=== PATIENT | female | born 1995 | race Caucasian/White ===

== ENCOUNTER 2017-11-21 14:26 | Outpatient (CLI) | payer OTHER, MEDICAID, SELFPAY ==
[2017-11-21 15:22] LABS: Bacteria Urine None Seen; RBC Urine None Seen (0-5/HPF); WBC Urine None Seen (0-5/HPF)
[2017-11-21 15:26] LABS: Appearance Urine UA CLEAR; Bilirubin Urine UA NEGATIVE (NEGATIVE); Color Urine UA YELLOW; Glucose Urine UA NEGATIVE (Negative); Ketones Urine UA NEGATIVE (NEGATIVE); Leukocyte Esterase Urine UA NEGATIVE (NEGATIVE); Nitrite Urine UA Negative (Negative); Occult Blood Urine UA NEGATIVE (Negative); Protein Urine UA NEGATIVE (Negative); Specific Gravity Urine UA <=1.005 (1.000-1.035); Urobilinogen Urine UA 0.2 E.U./dL (0.2)
[2017-11-21 16:15] LABS: Culture Indicated Urine Cult Not Indicated; Urine Comments Microscopic Normal
[2017-11-22 16:38] LABS: Strep Grp B PCR NEG for Grp B Strep
== END 2017-11-21 16:19 | disposition home or self-care (01) ==
LOC: LABOR 15:26 → OB 11-22 09:25
PROVIDERS: Family Provider Obstetrics & Gynecology; Visit Provider Obstetrics & Gynecology
DX: Z34.03 Encounter for supervision of normal first pregnancy, third trimester (principal); Z3A.35 35 weeks gestation of pregnancy
CPT/HCPCS: 59025; 59050; 81001; 87653; G0378; G0379

== ENCOUNTER 2017-12-02 19:43 | Outpatient (CLI) | payer OTHER, MEDICAID, SELFPAY ==
--- NOTE | 2017-12-03 13:00 | PM.OBTRLD ---
Visit Information Visit Information Date of evaluation: 12/02/17 Primary OB Provider: Alana Rodas On-call OB Provider: Alana Rodas Reason for Evaluation: Yes rule out labor Evaluation Evaluation Baseline heart rate: 125 Variability: Moderate (11-25) monitor accelerations: Present monitor decelerations: Absent Contraction Frequency (minutes): 12 Uterine Contraction Intensity: Mild Category of Tracing: I Cervical dilation (cm): 2 Cervical effacement (%): 80 station: -1 Diagnosis, Plan/Disposition Final Diagnosis (1) 38 weeks gestation of : Current Visit: No Status: Acute Plan/Disposition Plan: Assessment: 22-year-old 1 para 0 at 38 weeks gestation not in labor Plan: Discharged to home Signs and symptoms of labor reviewed Follow-up as scheduled for routine appointment this week
== END 2017-12-02 21:00 | disposition home or self-care (01) ==
LOC: OB 12-04 14:06
PROVIDERS: Family Provider Obstetrics & Gynecology; Visit Provider Obstetrics & Gynecology
DX: Z34.03 Encounter for supervision of normal first pregnancy, third trimester (principal); Z3A.37 37 weeks gestation of pregnancy
CPT/HCPCS: 59025; G0378; G0379

== ENCOUNTER 2017-12-08 03:49 | Outpatient (CLI) | payer OTHER, MEDICAID, SELFPAY | END 2017-12-08 05:50 | disposition home or self-care (01) | LOC: LABOR 05:26 → OB 12-12 14:08 | PROVIDERS: Family Provider Obstetrics & Gynecology | DX: Z34.03 Encounter for supervision of normal first pregnancy, third trimester (principal); Z3A.38 38 weeks gestation of pregnancy | CPT/HCPCS: 59025; 59050; 84112; G0378; G0379 ==

== ENCOUNTER 2017-12-12 06:01 | Inpatient (IN) | payer OTHER, MEDICAID, SELFPAY ==
[2017-12-12 06:41] LABS: Add Manual Diff / Slide Review NO; Basophils Percent Auto 0.8 % (0-2); Eosinophils Percent Auto 1.5 % (2-4); Hematocrit 36.2 % (36-46); Hemoglobin 12.5 g/dL (12.0-16.0); Lymphocytes Percent Auto 27.5 % (25-40); Mean Corpuscular HGB Conc 34.6 % (30-36); Mean Corpuscular Hemoglobin 31.6 PG (26-34); Mean Corpuscular Volume 91.3 fL (80-100); Monocytes Percent Auto 6.9 % (3-14); Neutrophils Absolute Auto 6400 /uL (3000-5900); Neutrophils Percent Auto 63.3 % (50-75); Platelet Count 305 X10^3/uL (150-400); Red Blood Cell Count 3.97 X10^6/uL (4.0-5.2); Red Cell Distribution Width 13.5 % (11.6-14.8); White Blood Cell Count 10.2 X10^3/uL (4.5-11.0)
[2017-12-12 07:01] VITALS: BP 170/88
[2017-12-12] MEDS: IBUPROFEN 600 MG TABLET PO ×2 (15:42→23:59)
[2017-12-12] MEDS: ACETAMINOPHEN 325 MG TABLET 650 MG PO (17:45)
[2017-12-12] MEDS: DERMOPLAST SPRAY 20% 60 ML 1 SPRAY TOP (18:01)
[2017-12-12] MEDS: LABETALOL 100 MG TABLET PO (21:54)
[2017-12-12 23:59] VITALS: TEMP 36.7
[2017-12-13 05:25] LABS: Hematocrit 31.5 % (36-46); Hemoglobin 10.9 g/dL (12.0-16.0)
[2017-12-13 09:24] VITALS: BP 105/72; PULSE 78
[2017-12-13] MEDS: PRENATAL VIT,CALC/IRON/FOLIC 1 TABLET 1 TAB PO (09:24)
[2017-12-13] MEDS: LABETALOL 100 MG TABLET PO (09:24)
[2017-12-13] MEDS: IBUPROFEN 600 MG TABLET PO (09:26)
[2017-12-13 13:55] VITALS: BP 132/87; PULSE 67; TEMP 37.2
== END 2017-12-13 15:00 | disposition home or self-care (01) | DRG 775 ==
PROVIDERS: Admitting Provider Obstetrics & Gynecology; Family Provider Obstetrics & Gynecology; Visit Provider Obstetrics & Gynecology
DX: O70.0 First degree perineal laceration during delivery (principal); Z3A.38 38 weeks gestation of pregnancy; Z37.0 Single live birth
CPT/HCPCS: 36415; 59050; 59410; 85014; 85018; 85025; 86850; 86900; 86901; G0379

== ENCOUNTER 2018-09-12 15:45 | Emergency (ER) | payer OTHER, MEDICAID, SELFPAY ==
[2018-09-12 16:08] VITALS: BP 100/66; PULSE 76; RESP 20; TEMP 36.9; O2SAT 100
== END 2018-09-12 18:17 | disposition left against medical advice (07) ==
PROVIDERS: Emergency Provider Emergency Medicine; Family Provider Obstetrics & Gynecology
CPT/HCPCS: 99281

== ENCOUNTER → 2018-10-25 14:21 | Outpatient (CLI) | payer OTHER, MEDICAID, SELFPAY ==
--- NOTE | 2018-10-25 14:23 | DI.US.S_ITS ---
PROCEDURE: US OB >= 14 WEEKS FETUS INDICATIONS: DATING AND VIABILITY OUTSIDE/PRIOR DATING DATA: Last menstrual period (LMP): Unknown. LMP-based estimated date of delivery (TRINO): Unknown. First dating scan (date and location): 10/25/18. Estimated date of delivery (TRINO) from first dating scan: 04/08/19. TECHNIQUE: Real-time scanning was performed of the fetus, with image documentation and biometric measurements. Endovaginal scanning: Performed COMPARISON: None. FINDINGS: General: A single living intrauterine gestation is present. Presentation: Vertex. Placenta: Placental position is anterior and. Low-lying placenta Amniotic fluid index: Subjectively normal heart rate: 149 beats per minute. Maternal cervical canal: 3.7 cm long. Normal lower limit is 2.5 cm. biometrics: Biparietal diameter: 3.4 cm, 16 weeks 3 days Head circumference: 13.1 cm, 16 weeks 5 days Abdominal circumference: 11.0 cm, 16 weeks 6 days Femur length: 1.8 cm, 15 weeks 3 days Estimated gestational age from initial scan: not applicable. Composite gestational age from present scan: 16 weeks 3 days Estimated weight and percentile: 129 g Measurement variability for biometric dating: +/- 7 days from 14 weeks to 15 weeks 6 days gestation, +/- 10 days from 16 weeks to 21 weeks 6 days gestation, +/- 2 weeks from 22 weeks to 27 weeks 6 days gestation, +/- 3 weeks for 28 weeks gestation or later. weight reference: 4500 g or EFW >90/95% is considered macrosomia or large for gestational age. EFW <10% is small for gestational age. EFW 5% or less is considered intra-uterine growth restriction. Incidental uterine contraction the visualized during examination. IMPRESSION: Single living intrauterine fetus in vertex presentation with gestational age of 16 weeks and 3 days by today's ultrasound measurements. Low-lying placenta. Recommend followup. Dictated by: Mauricio Muniz M.D. on 10/25/2018 at 15:54 Approved by: Mauricio Muniz M.D. on 10/25/2018 at 16:01
== END ==
PROVIDERS: Family Provider Obstetrics & Gynecology; Visit Provider Obstetrics & Gynecology
DX: Z34.82 Encounter for supervision of other normal pregnancy, second trimester (principal); Z3A.16 16 weeks gestation of pregnancy
CPT/HCPCS: 36415; 76811; 80055; 81003; 86703; 86787; 86803; 86850; 86900; 86901; 87086

== ENCOUNTER → 2018-10-25 15:52 | Outpatient (CLI) | payer OTHER, MEDICAID, SELFPAY ==
[2018-10-25 16:25] LABS: Add Manual Diff / Slide Review NO; Basophils Absolute Auto 0 /uL (0-100); Basophils Percent Auto 0.4 % (0-2); Eosinophils Absolute Auto 100 /uL (0-450); Hematocrit 35.9 % (36-46); Hemoglobin 12.1 g/dL (12.0-16.0); Lymphocytes Absolute Auto 1800 /uL (1100-4500); Lymphocytes Percent Auto 26.7 % (25-40); Mean Corpuscular HGB Conc 33.7 % (30-36); Mean Corpuscular Hemoglobin 30.7 PG (26-34); Mean Corpuscular Volume 90.9 fL (80-100); Monocytes Absolute Auto 400 /uL (0-900); Monocytes Percent Auto 5.8 % (3-14); Neutrophils Absolute Auto 4600 /uL (1500-7000); Neutrophils Percent Auto 66.1 % (50-75); Platelet Count 296 X10^3/uL (150-400); Red Blood Cell Count 3.94 X10^6/uL (4.0-5.2); White Blood Cell Count 6.9 X10^3/uL (4.5-11.0)
[2018-10-25 16:36] LABS: Appearance Urine UA CLEAR; Bilirubin Urine UA NEGATIVE (NEGATIVE); Color Urine UA YELLOW; Glucose Urine UA NEGATIVE (Negative); Ketones Urine UA TRACE (NEGATIVE); Leukocyte Esterase Urine UA NEGATIVE (NEGATIVE); Nitrite Urine UA NEGATIVE (Negative); Occult Blood Urine UA NEGATIVE (Negative); Protein Urine UA NEGATIVE (Negative); Specific Gravity Urine UA <=1.005 (1.000-1.035); Urobilinogen Urine UA 0.2 E.U./dL (0.2)
[2018-10-25 18:10] LABS: Hepatitis B Surface Antigen NEGATIVE s/c (NEGATIVE)
[2018-10-25 18:19] LABS: HIV 1 and 2 Antibody NEGATIVE (NEGATIVE); Hep C Virus Ab w/Reflex Quant NEGATIVE s/c (NEGATIVE)
[2018-10-27 15:47] LABS: RPR Screen Nonreactive (Nonreactive)
== END ==
PROVIDERS: Family Provider Obstetrics & Gynecology; Visit Provider Obstetrics & Gynecology
DX: Z34.82 Encounter for supervision of other normal pregnancy, second trimester (principal)
CPT/HCPCS: 36415; 80055; 81003; 86703; 86787; 86803; 86850; 86900; 86901; 87086

== ENCOUNTER → 2018-11-08 15:58 | Outpatient (CLI) | payer OTHER, MEDICAID, SELFPAY ==
[2018-11-08 20:23] LABS: Urine N gonorrhoeae NOT DETECTED
[2018-11-08 20:26] LABS: Urine Chlamydia NOT DETECTED
[2018-11-13 15:14] LABS: AFP, Serum 80.1 ng/mL; Calc Gestational Age 18.4; Cigarette Smoker N; Donated Egg NOT GIVEN; Donor Egg Age NOT GIVEN; Estriol, Free 1.15 ng/mL; Inhibin A, Dimeric 150 pg/mL; Maternal Weight 111 lbs; Number of Fetuses NOT GIVEN; Previous Pregnancy Down Syndro NOT GIVEN; hCG, Serum 21.9 IU/mL
== END ==
PROVIDERS: Family Provider Obstetrics & Gynecology; Visit Provider Obstetrics & Gynecology
DX: Z34.82 Encounter for supervision of other normal pregnancy, second trimester (principal)
CPT/HCPCS: 36415; 82105; 82677; 84702; 86336; 87491; 87591

== ENCOUNTER → 2018-11-22 12:33 | Outpatient (CLI) | payer OTHER, MEDICAID, SELFPAY ==
--- NOTE | 2018-11-22 12:34 | DI.US.S_ITS ---
PROCEDURE: US OB >= 14 WEEKS FETUS INDICATIONS: ANATOMY OUTSIDE/PRIOR DATING DATA: Last menstrual period (LMP): Unknown. LMP-based estimated date of delivery (TRINO): N./A.. First dating scan (date and location): 10/25/18. Estimated date of delivery (TRINO) from first dating scan: 04/08/19. TECHNIQUE: Real-time scanning was performed of the fetus, with image documentation and biometric measurements. Endovaginal scanning: No COMPARISON: [facility], , OB >= 14 WEEKS FETUS, 11/08/2018, 15:44. FINDINGS: General: A single living intrauterine gestation is present. Presentation: Vertex. Placenta: Placental position is anterior, without previa. Amniotic fluid index: 15.0 cm, normal range is 5-24 cm. heart rate: 137 beats per minute. Maternal cervical canal: 3.1 cm long. Normal lower limit is 2.5 cm. biometrics: Biparietal diameter: 21 weeks 2 days Head circumference: 20 weeks 6 days Abdominal circumference: 20 weeks 4 days Femur length: 19 weeks 3 days Estimated gestational age from initial scan: 20 weeks 3 days Composite gestational age from present scan: 20 weeks 4 days Estimated weight and percentile: 336 g; 31st percentile Measurement variability for biometric dating: +/- 7 days from 14 weeks to 15 weeks 6 days gestation, +/- 10 days from 16 weeks to 21 weeks 6 days gestation, +/- 2 weeks from 22 weeks to 27 weeks 6 days gestation, +/- 3 weeks for 28 weeks gestation or later. weight reference: 4500 g or EFW >90/95% is considered macrosomia or large for gestational age. EFW <10% is small for gestational age. EFW 5% or less is considered intra-uterine growth restriction. Anatomic survey: Neuro: Ventricles are non-dilated at less than 10 mm. Cisterna magna is normal at 3-11 mm. Cerebellum is normal in size and morphology. Nuchal skin fold: Normal at less than 6 mm between 14-21 weeks gestational age. Face: Nose and lips, facial profile are normal. Spine: No evidence for spina bifida. Heart: 4-chambered heart is present, with normal ventricular outflow tracts. Diaphragm: Diaphragm is intact. Stomach: Left-sided stomach is present. Kidneys: No hydronephrosis. Normal is less than 5 mm in 2nd trimester, less than 7 mm in 3rd trimester. Cord: 3-vessel cord has orthotopic insertion. Bladder: Normal in size. Extremities: All 4 extremities identified. IMPRESSION: 1. Single living IUP redemonstrated and interval growth is normal. 2. Normal anatomic survey. Dictated by: Dhiraj GRIJALVA Interpreted: Nila Gar MD on 11/22/2018 at 14:13 Approved by: Nila Gar M.D. on 11/22/2018 at 17:58
== END ==
PROVIDERS: Family Provider Obstetrics & Gynecology; Visit Provider Obstetrics & Gynecology
DX: Z34.82 Encounter for supervision of other normal pregnancy, second trimester (principal); Z3A.20 20 weeks gestation of pregnancy
CPT/HCPCS: 76811

== ENCOUNTER → 2018-12-28 10:31 | Outpatient (CLI) | payer OTHER, MEDICAID, SELFPAY ==
[2018-12-28 12:45] LABS: Hematocrit 31.4 % (36-46); Hemoglobin 10.9 g/dL (12.0-16.0)
[2018-12-28 12:53] LABS: GTT (PREG) 1 Hour PP 50gm Dose 77 mg/dL (76-139)
== END ==
PROVIDERS: Visit Provider Obstetrics & Gynecology
DX: Z34.82 Encounter for supervision of other normal pregnancy, second trimester (principal)
CPT/HCPCS: 36415; 82950; 85014; 85018

== ENCOUNTER 2019-02-20 12:55 | Outpatient (CLI) | payer OTHER, MEDICAID, SELFPAY ==
--- NOTE | 2019-02-22 12:43 | PM.OBTRLD ---
Visit Information Visit Information Date of evaluation: 02/20/19 Primary OB Provider: Alana Rodas Reason for Evaluation: Yes non-stress test PFSH Social History Smoking Status: Former smoker Social History Smoking Status: Former smoker Evaluation Evaluation Baseline heart rate: 135 Variability: Moderate (11-25) monitor accelerations: Present monitor decelerations: Absent Category of Tracing: I Diagnosis, Plan/Disposition Final Diagnosis (1) 33 weeks gestation of : Current Visit: No Status: Acute Plan/Disposition Plan: Assessment: 23-year-old 2 para 1 at 33 weeks gestation with placenta that is aged greater than gestational age Category 1 nonstress test Plan: kick counts Nonstress test weekly Follow-up in 2 weeks for [facility] OB Disposition: home
== END 2019-02-20 13:24 | disposition home or self-care (01) ==
LOC: LABOR 13:14 → OB 02-26 13:39
PROVIDERS: PCP Physician Assistant; Visit Provider Obstetrics & Gynecology
DX: O43.893 Other placental disorders, third trimester (principal); Z3A.33 33 weeks gestation of pregnancy
CPT/HCPCS: 59025; G0378; G0379